=== PATIENT | female | born 1970 | race African-American/Black ===

== ENCOUNTER 2017-05-25 16:43 | Emergency (ER) | payer OTHER ==
[~2017-05-25] VITALS: Ht 175.3 cm; Wt 105.5 kg
[2017-05-25 18:25] LABS: HEMATOCRIT 41.5 % (36.0-46.0); MCH 33.8 PG (29.0-34.0); MCHC 34.5 G/DL (30.0-36.0); MCV 98.1 FL (83-99); MEAN PLAT.VOLUME 9.4 uM^3 (9.5-12.4); PLATELET COUNT 265 K/uL (156-360); RBC DIS.WIDTH-CV 13.9 % (11.8-14.6); RBC DIS.WIDTH-SD 50.7 % (39-53); RED BLOOD COUNT 4.23 M/uL (3.80-5.20); WHITE BLOOD COUNT 6.1 K/uL (4.1-10.2)
[2017-05-25 18:37] LABS: CHLORIDE 105 mEq/L (99-109); POTASSIUM 3.5 mEq/L (3.7-5.4); SODIUM 139 mEq/L (136-147)
[2017-05-25 18:39] LABS: GLUCOSE 99 mg/dL (70-99)
[2017-05-25 18:40] LABS: ANION GAP 14 MEQ/L (2-14)
[2017-05-25 18:41] LABS: TOTAL BILIRUBIN 0.4 mg/dL (0.0-1.0)
[2017-05-25 18:42] LABS: ALKALINE PHOSPHATASE 72 IU/L (3-129)
[2017-05-25 18:43] LABS: GFR ESTIMATE (CALCULATED) > 59 mL/min/
[2017-05-25 18:44] LABS: UREA NITROGEN (BUN) 10 mg/dL (9-23)
[2017-05-25 18:45] LABS: TROP-I INTERPRETATION NEGATIVE; TROPONIN-I < 0.01 ng/mL (0.0-0.30)
[2017-05-25 18:46] LABS: LIPASE 33 U/L (1.0-51.0)
[2017-05-25 19:45] LABS: ADD MIUA? YES; BILIRUBIN NEGATIVE; BLOOD SMALL; COLOR YELLOW ((YELLOW)); GLUCOSE (STRIP) NEGATIVE; KETONES NEGATIVE; LEUKOCYTES NEGATIVE; NITRITE NEGATIVE; PROTEIN (STRIP) NEGATIVE; SPECIFIC GRAVITY 1.012 (1.000-1.030); UROBILINOGEN 0.2 MG/DL (0.2-1.0)
[2017-05-25 19:58] LABS: BACTERIA RARE /HPF; EPITHELIAL CELLS RARE /HPF; MUCUS TRACE /LPF; WHITE BLOOD CELLS 0-5 /HPF (0-5)
[2017-05-25] MEDS ORDERED: PERCOCET 5/31 TABLET PO (21:13)
[2017-05-25] MEDS ORDERED: NAPROSYN500 MG PO (21:13)
[2017-05-25 21:22] VITALS: BP 147/83
== END 2017-05-25 21:23 | disposition home or self-care (01) ==
LOC: EME 16:43
PROVIDERS: Nurse Practitioner Family
DX: S20.219A Contusion of unspecified front wall of thorax, initial encounter (principal); V49.10XA Passenger injured in collision with unspecified motor vehicles in nontraffic accident, initial encounter; Y92.411 Interstate highway as the place of occurrence of the external cause; I25.2 Old myocardial infarction; F17.200 Nicotine dependence, unspecified, uncomplicated; Z95.5 Presence of coronary angioplasty implant and graft; Z79.01 Long term (current) use of anticoagulants
CPT/HCPCS: 70450; 71260; 72125; 72129; 72132; 74177; 80053; 81003; 83690; 84484; 85027; 93005; 99281; 99285; J2270; J3010; J3360; J7030; J7040